=== PATIENT | female | born 1980 ===

== ENCOUNTER 2018-07-12 15:39 | Emergency (ER) | payer BC, OTHER ==
--- NOTE | 2018-07-12 15:54 | UC ---
Respiratory Complaint HPI - HPI Summary HPI Summary: 37 yo female presents with 1 week of sinus congestion, dry cough, b/l earache, fatigue, and body aches. She has been taking ibuprofen and mucinex with little relief of her symptoms. She does not smoke. Denies fever, sore throat, SOB, chest pain, abdominal pain, n/v, rash. - History of Current Complaint Chief Complaint: UCRespiratory Stated Complaint: URI Time Seen by Provider: 07/12/18 15:54 Hx Obtained From: Patient Hx Last Menstrual Period: 07/01/18 Onset/Duration: Gradual Onset Severity Initially: Mild Severity Currently: Mild Pain Intensity: 4 Pain Scale Used: 0-10 Numeric Character: Cough: Nonproductive - Allergies/Home Medications Allergies/Adverse Reactions: Allergies Allergy/AdvReac Type Severity Reaction Status Date / Time Sulfa (Sulfonamide Allergy Nausea And Verified 07/12/18 15:54 Antibiotics) Vomiting Home Medications: Home Medications Ibuprofen 400 mg PO ONCE PRN 07/12/18 [History Confirmed 07/12/18] Levothyroxine Sodium 50 mcg PO DAILY 07/12/18 [History Confirmed 07/12/18] guaiFENesin [Mucinex] 1,200 mg PO ONCE PRN 07/12/18 [History Confirmed 07/12/18] PMH/Surg Hx/FS Hx/Imm Hx - Additional Past Medical History Additional PMH: None - Surgical History Surgical History: Yes Surgery Procedure, Year, and Place: - Family History Known Family History: Positive: None - Social History Occupation: Employed Full-time Lives: With Family Alcohol Use: Occasionally Substance Use Type: None Smoking Status (MU): Never Smoked Tobacco Review of Systems All Other Systems Reviewed And Are Negative: Yes Constitutional: Positive: Fatigue, Other - Body aches Skin: Positive: Negative Eyes: Positive: Negative ENT: Positive: Ear Ache, Nasal Discharge, Sinus Congestion, Sinus Pain/ Tenderness Respiratory: Positive: Cough Cardiovascular: Positive: Negative Gastrointestinal: Positive: Negative Neurovascular: Positive: Negative Neurological: Positive: Negative Psychological: Positive: Negative Physical Exam - Summary Physical Exam Summary: GENERAL: NAD. WDWN. No pain distress. SKIN: No rashes, sores, lesions, or open wounds. HEENT: Head: AT/NC Eyes: EOM intact. Conjunctiva clear without inflammation or discharge. Ears: Hearing grossly normal. TMs intact, no bulging, erythema, or edema. Nose: Nasal mucosa pink and moist. NTTP maxillary and frontal sinus. Throat: Posterior oropharynx without exudates, erythema, or tonsillar enlargement. Uvula midline. NECK: Supple. Nontender. No lymphadenopathy. CHEST: CTAB. No r/r/w. No accessory muscle use. Breathing comfortably and in no distress. CV: RRR. Without m/r/g. Pulses intact. Cap refill <2seconds NEURO: Alert. PSYCH: Age appropriate behavior. Triage Information Reviewed: Yes Vital Signs: Initial Vital Signs Temp 97.4 F 07/12/18 15:50 Pulse 87 07/12/18 15:50 Resp 18 07/12/18 15:50 BP 120/75 07/12/18 15:50 Pulse Ox 99 07/12/18 15:50 Vital Signs Reviewed: Yes Respiratory Course/Dx - Course Course Of Treatment: Suspect viral illness and advised to continue mucinex and tylenol/ibuprofen. May start taking claritin as well for a decongestant. Given length of symptoms will call in anbx, but advised to give her symptoms 2-3 more days and if no improvement with OTC treatments may start anbx. Pt agreeable with plan - Differential Dx/Diagnosis Provider Diagnosis: Viral syndrome Discharge - Sign-Out/Discharge Documenting (check all that apply): Patient Departure All imaging exams completed and their final reports reviewed: No Studies - Discharge Plan Condition: Stable Disposition: HOME Prescriptions: Azithromycin TAB* [Zithromax TAB (Z-THEA) 250 mg #6 tabs] 2 tab PO .TODAY, THEN 1 DAILY #1 thea Patient Education Materials: Rhinosinusitis (ED) Referrals: No Primary Care Phys,NOPCP [Primary Care Provider] - Additional Instructions: If you develop a fever, shortness of breath, chest pain, new or worsening symptoms - please call your PCP or go to the ED. 1) If your symptoms do not improve in the next few days - may start the antibiotic 2) Continue taking mucinex and tylenol/ibuprofen for your symptoms - Billing Disposition and Condition Condition: STABLE Disposition: Home
== END 2018-07-12 16:15 | disposition home or self-care (01) ==
LOC: UCEAST 15:39
DX: B34.9 Viral infection, unspecified (principal)
CPT/HCPCS: 99202; G0463